=== PATIENT | male | born 2000 | race Caucasian/White ===

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

== ENCOUNTER → 2018-10-01 | Outpatient (CLI) | payer BC | LOC: COL.RAD 09:41 | DX: M27.8 Other specified diseases of jaws (principal) | CPT/HCPCS: A9503 ==

== ENCOUNTER → 2024-02-04 | Outpatient (CLI) | payer BC | LOC: COL.RAD 07:45 | DX: J34.89 Other specified disorders of nose and nasal sinuses (principal); J31.0 Chronic rhinitis; Z98.890 Other specified postprocedural states ==